=== PATIENT | male | born 1970 | race Hispanic/Latino ===

== ENCOUNTER 2017-05-26 09:58 | Emergency (ER) | payer MEDICARE, MEDICAID ==
[~2017-05-26] VITALS: Ht 170.2 cm; Wt 77.1 kg
[~2017-05-26 09:58] MED LIST: CEPHALEXIN500 MG ORAL; IBUPROFEN600 MG ORAL; NKM; QUETIAPINE FUMA25 MG ORAL; SEROQUEL200 MG ORAL
[2017-05-26] MEDS ORDERED: LORazepam Inj 2mg/ml 1ml IM ONE (10:15)
[2017-05-26 10:30] VITALS: BP 123/87
[2017-05-26 10:40] VITALS: BP 123/87
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
== END 2017-05-26 10:40 | disposition home or self-care (01) ==
LOC: EDBD 09:58 → EMR 10:22
DX: F41.9 Anxiety disorder, unspecified (principal); I10 Essential (primary) hypertension; Z86.59 Personal history of other mental and behavioral disorders
CPT/HCPCS: 96372; 99283

== ENCOUNTER 2017-12-02 18:47 | Emergency (ER) | payer MEDICARE, MEDICAID ==
[~2017-12-02] VITALS: Ht 170.2 cm; Wt 81.6 kg
[2017-12-02 19:05] VITALS: BP 142/77
[2017-12-02] MEDS ORDERED: LORazepam Inj 2mg/ml 1ml IM ONE (19:15)
[2017-12-02 19:43] VITALS: BP 142/77
--- NOTE | 2017-12-05 21:52 | Emergency Room Report ---
History of Present Illness General Chief Complaint: General Complaint Source: Patient Present Illness HPI 47-year-old male presents ED for evaluation. Patient states he is having an anxiety attack started today. History of anxiety. States his home medications were not helping. States he saw people taking pictures of him today. States he does have paranoia. Patient is in ED with service dog. Denies suicidal or homicidal ideation. Denies chest pain or shortness of breath. Denies hearing voices. No other aggravating or relieving factors. Denies any other associated symptoms Allergies: Coded Allergies: No Known Allergies (Unverified , 03/17/13) Patient History Past Medical History: psych hx Past Surgical History: none Pertinent Family History: none Social History: Denies: smoking, alcohol use, drug use Immunizations: UTD Reviewed Nursing Documentation: PMH: Agreed; PSxH: Agreed Nursing Documentation-PMH Hx Cardiac Problems: No Hx Hypertension: Yes Hx Cancer: No Hx Gastrointestinal Problems: No History Of Psychiatric Problem: Yes - Bipolar, Schizophrenia. Hx Neurological Problems: No Review of Systems All Other Systems: negative except mentioned in HPI Physical Exam Vital Signs Date Time Temp Pulse Resp B/P (MAP) Pulse Ox O2 Delivery O2 Flow Rate FiO2 12/02/17 19:05 99.0 107 14 142/77 98 Room Air 99.0 Sp02 EP Interpretation: reviewed, normal General Appearance: no apparent distress, alert, GCS 15, non-toxic Head: normocephalic, atraumatic Eyes: bilateral eye normal inspection, bilateral eye PERRL ENT: hearing grossly normal, normal pharynx, no angioedema, normal voice Neck: full range of motion, supple/symm/no masses Respiratory: chest non-tender, lungs clear, normal breath sounds, speaking full sentences Cardiovascular #1: regular rate, rhythm, no edema Cardiovascular #2: 2+ carotid (R), 2+ carotid (L), 2+ radial (R), 2+ radial (L) , 2+ dorsalis pedis (R), 2+ dorsalis pedis (L) Gastrointestinal: normal bowel sounds, non tender, soft, non-distended, no guarding, no rebound Rectal: deferred Genitourinary: normal inspection, no CVA tenderness Musculoskeletal: back normal, gait/station normal, normal range of motion, non- tender Neurologic: alert, oriented x3, responsive, motor strength/tone normal, sensory intact, speech normal Psychiatric: judgement/insight normal, memory normal, no suicidal/homicidal ideation, no delusions, anxious Reflexes: 3+ bicep (R), 3+ bicep (L), 3+ tricep (R), 3+ tricep (L), 3+ knee (R) , 3+ knee (L) Skin: normal color, no rash, warm/dry, well hydrated Lymphatic: no adenopathy Medical Decision Making Diagnostic Impression: Primary Impression: Anxiety ER Course Hospital Course 47-year-old male presents ED feeling very anxious after people taking pictures of him today. History of anxiety Differential diagnoses include: [place]/unstable angina, CVA/TIA, dehydration, anxiety Clinical course Patient placed on stretcher. on monitor and storage bin tender. After initial history, physical exam reveals male in no acute distress. Patient has good eye contact. Normal affect. Appears anxious. No signs of suicidal or homicidal ideation. Patient given Ativan IM in ED. On reassessment patient feeling better. Safe for discharge I. I feel this is a highly complex case requiring extensive working including EKG/Rhythm strip, Xray/CT/US, Blood/urine lab work, repeat exams while in ED, and administration of strong opiates/narcotics for pain control, admission to hospital or close patient follow up. Diagnosis - anxiety Stable and discharged to home. Followup with PMD. Return to ED if symptoms recur or worse Last Vital Signs Date Time Temp Pulse Resp B/P (MAP) Pulse Ox O2 Delivery O2 Flow Rate FiO2 12/02/17 19:43 99.0 107 14 142/77 98 Room Air 99.0 Status: improved Disposition: HOME, SELF-CARE Condition: Stable Referrals: NON PHYSICIAN (PCP) Patient Instructions: Panic Attacks, [id number] Jaime Gold MD December 05, 2017 21:52
== END 2017-12-02 19:43 | disposition home or self-care (01) ==
LOC: EMR 19:22
DX: F41.9 Anxiety disorder, unspecified (principal); I10 Essential (primary) hypertension; F20.9 Schizophrenia, unspecified; F31.9 Bipolar disorder, unspecified
CPT/HCPCS: 96372; 99284

== ENCOUNTER 2018-01-14 11:30 | Emergency (ER) | payer MEDICARE, MEDICAID ==
[~2018-01-14] VITALS: Ht 172.7 cm; Wt 79.4 kg
[2018-01-14 12:07] VITALS: BP 168/88
--- NOTE | 2018-01-14 13:26 | Emergency Room Report ---
History of Present Illness General Chief Complaint: Behavioral Complaint Source: Patient Present Illness HPI 47-year-old male patient presents ER complaining of anxiety after interaction with neighbors this morning. Denies other acute symptoms. Reports history of anxiety. denies thoughts of hurting himself or others. Previously seen in [facility] [place]. Requesting treatment to help with anxiety symptoms. Reports has mental health counselors he normally sees but none are available. Allergies: Coded Allergies: No Known Allergies (Unverified , 03/17/13) Patient History Past Medical History: see triage record Reviewed Nursing Documentation: PMH: Agreed; PSxH: Agreed Nursing Documentation-PMH Past Medical History: No History, Except For Hx Cardiac Problems: No Hx Hypertension: Yes Hx Cancer: No Hx Gastrointestinal Problems: No History Of Psychiatric Problem: Yes - anxiety attacks Hx Neurological Problems: No Review of Systems All Other Systems: negative except mentioned in HPI Physical Exam Vital Signs Date Time Temp Pulse Resp B/P (MAP) Pulse Ox O2 Delivery O2 Flow Rate FiO2 01/14/18 12:03 98.3 168/88 100 Room Air 98.2 Sp02 EP Interpretation: reviewed, normal General Appearance: well appearing, no apparent distress, alert, GCS 15, non- toxic Head: normocephalic, atraumatic Eyes: bilateral eye normal inspection, bilateral eye PERRL ENT: hearing grossly normal, normal pharynx, no angioedema, normal voice, uvula midline, moist mucus membranes Neck: full range of motion Respiratory: lungs clear, normal breath sounds, no rhonchi, no respiratory distress, no accessory muscle use, no wheezing, speaking full sentences Cardiovascular #1: regular rate, rhythm, no edema Gastrointestinal: non tender, soft, no mass, non-distended, no guarding, no rebound Genitourinary: no CVA tenderness Musculoskeletal: back normal, digits/nails normal, gait/station normal, normal range of motion, non-tender Neurologic: alert, oriented x3, responsive, motor strength/tone normal, sensory intact Psychiatric: mood/affect normal Skin: no rash Lymphatic: no adenopathy Medical Decision Making PA Attestation Dr. Horan is my supervising Physician whom patient management has been discussed with. Diagnostic Impression: Primary Impression: Anxiety ER Course Pt. presents to the ED c/o anxiety symptoms. Multiple differentials considered. Vital signs: are WNL, pt. is afebrile ED COURSE: Physical exam benign. Reviewed previous charts for patient when presenting with similar symptoms. Will provide patient with 2mg IM Ativan at this time as previously done. Instructed patient further treatment needs to come from his mental health counselors, will not provide Rx at discharge. Patient reports understanding. Patient reports feeling better following administration of medication. Patient OK fro discharge. Do not believe patient is a danger to himself or others at this time. DISCHARGE: At this time pt is stable for d/c to home. Patient is resting comfortably, in no acute distress, nontoxic appearing, talking without difficulty. Patient to take medications as instructed Will provide with patient care instructions and any necessary prescriptions. Care plan and follow-up instructions provided. Patient instructed to follow-up with primary care provider in 3 - 5 days. Patient questions asked and answered. Patient reports understanding and agreement to treatment plan. ER precautions given. Patient instructed to return to ER immediately for any new or worsening of symptoms including but not limited to increasing SOB, persistent fever, chest pain, intractable vomiting. - Please note that this Emergency Department Report was dictated using RipCodegrades 6 through 8 teacher technology software, occasionally this can lead to erroneous entry secondary to interpretation by the dictation equipment. Last Vital Signs Date Time Temp Pulse Resp B/P (MAP) Pulse Ox O2 Delivery O2 Flow Rate FiO2 01/14/18 12:03 98.3 168/88 100 Room Air 98.2 Disposition: HOME, SELF-CARE Condition: Stable Referrals: NOT CHOSEN IPA/MD,REFERRING (PCP) Patient Instructions: Generalized Anxiety Disorder Additional Instructions: Followup with primary care provider in 3 -5 days. Follow-up with mental health professional. Take medications as directed. Patient questions asked and answered. ER precautions given, patient instructed to return to ER immediately for any new or worsening of symptoms. Jesús Nash Jan 14, 2018 13:26
[2018-01-14] MEDS ORDERED: LORazepam Inj 2mg/ml 1ml IM ONE (13:30)
[2018-01-14 13:48] VITALS: BP 162/80
== END 2018-01-14 13:48 | disposition home or self-care (01) ==
LOC: EMR 12:55
DX: F41.9 Anxiety disorder, unspecified (principal); I10 Essential (primary) hypertension
CPT/HCPCS: 96372; 99283

== ENCOUNTER 2018-07-11 10:41 | Emergency (ER) | payer MEDICARE, MEDICAID ==
[~2018-07-11] VITALS: Ht 170.2 cm; Wt 74.8 kg
[2018-07-11 11:14] VITALS: BP 139/83
[2018-07-11] MEDS ORDERED: Mylanta II UD 30ml ORAL ONE (11:15)
[2018-07-11 11:41] LABS: EOSINOPHILS % (AUTO) 0.4 % (0.0-3.0); HEMATOCRIT 43.3 % (42.0-52.0); HEMOGLOBIN 15.2 G/DL (14.2-18.0); LYMPHOCYTES % (AUTO) 22.1 % (20.0-45.0); MEAN CORPUSCULAR VOLUME 91 FL (80-99); MONOCYTES % (AUTO) 7.1 % (1.0-10.0); NEUTROPHILS % (AUTO) 69.4 % (45.0-75.0); PLATELET COUNT 243 K/UL (150-450); RED BLOOD COUNT 4.74 M/UL (4.70-6.10); RED CELL DISTRIBUTION WIDTH 10.7 % (11.6-14.8); WHITE BLOOD COUNT 8.7 K/UL (4.8-10.8)
[2018-07-11 11:48] LABS: ANION GAP 10 mmol/L (5-15); BLOOD UREA NITROGEN 15 mg/dL (7-18); CALCIUM 9.6 MG/DL (8.5-10.1); CARBON DIOXIDE 27 MMOL/L (21-32); CHLORIDE 105 MMOL/L (98-107); CREATININE 1.1 MG/DL (0.55-1.30); SODIUM 142 MMOL/L (136-145)
[2018-07-11 11:49] LABS: APPEARANCE,URINE CLEAR; BILIRUBIN, URINE NEGATIVE (NEGATIVE); COLOR,URINE YELLOW; GLUCOSE, URINE (UA) NEGATIVE (NEGATIVE); KETONES,URINE 3+ (NEGATIVE); LEUKOCYTE ESTERASE ,URINE 1+ (NEGATIVE); NITRITE,URINE NEGATIVE (NEGATIVE); PH,URINE 6.5 (4.5-8.0); PROTEIN,URINE 2+ (NEGATIVE); UROBILINOGEN,URINE 4 MG/DL (0.0-1.0)
[2018-07-11 11:52] LABS: ALANINE AMINOTRANSFERASE 27 U/L (12-78); ALBUMIN 4.1 G/DL (3.4-5.0); ALKALINE PHOSPHATASE 131 U/L (46-116); ASPARTATE AMINO TRANSFERASE 21 U/L (15-37); BILIRUBIN,TOTAL 0.6 MG/DL (0.2-1.0)
--- NOTE | 2018-07-11 12:39 | Emergency Room Report ---
History of Present Illness General Chief Complaint: Nausea, Vomiting, and Diarrhea Source: Patient Present Illness HPI 47-year-old male with no medical problems other than anxiety presents with epigastric pain after eating an orange week ago with intermittent bouts of nausea vomiting diarrhea since then, he has tried Pepto-Bismol, [place], without relief. He has no other complaints such as fevers, rectal bleeding, melanotic stools, chest pain, shortness breath. He also denies recent antibiotic use. Allergies: Coded Allergies: No Known Allergies (Unverified , 03/17/13) Patient History Reviewed Nursing Documentation: PMH: Agreed; PSxH: Agreed Nursing Documentation-PMH Past Medical History: No History, Except For Hx Cardiac Problems: No Hx Hypertension: Yes Hx Cancer: No Hx Gastrointestinal Problems: No Hx Neurological Problems: No Review of Systems All Other Systems: negative except mentioned in HPI Physical Exam Vital Signs Date Time Temp Pulse Resp B/P (MAP) Pulse Ox O2 Delivery O2 Flow Rate FiO2 07/11/18 10:53 97.9 89 17 139/83 98 Room Air Sp02 EP Interpretation: reviewed, normal General Appearance: no apparent distress, alert, non-toxic Head: normocephalic Eyes: bilateral eye normal inspection, bilateral eye PERRL, bilateral eye EOMI ENT: normal ENT inspection, hearing grossly normal, normal pharynx, no angioedema, normal voice, moist mucus membranes Neck: normal inspection, full range of motion, supple, supple/symm/no masses Respiratory: chest non-tender, lungs clear, normal breath sounds, chest symmetrical, palpation of chest normal Cardiovascular #1: normal peripheral pulses, regular rate, rhythm Cardiovascular #2: 2+ radial (R), 2+ radial (L) Gastrointestinal: normal inspection, non tender, soft, no mass, no guarding, no rebound Rectal: deferred Genitourinary: normal inspection, no CVA tenderness Musculoskeletal: back normal, gait/station normal, normal range of motion, non- tender, no calf tenderness Neurologic: alert, responsive, ballet teacher III-XII nml as tested, motor strength/tone normal, sensory intact, speech normal Psychiatric: judgement/insight normal, memory normal, mood/affect normal, no suicidal/homicidal ideation Skin: normal color, no rash, warm/dry, normal turgor Lymphatic: no adenopathy Medical Decision Making Diagnostic Impression: Primary Impression: Abdominal pain ER Course Workup has been unremarkable, patient still with pain, CT showed possible calcification versus gallstones, patient's LFTs unremarkable as well as minimally elevated, normal white count, soft abdomen, mostly patient is anxious , will recommend follow-up as an outpatient. EKG Diagnostic Results EKG Time: 11:30 EP Interpretation: no stemi Rate: normal Rhythm: NSR ST Segments: no acute changes CT/MRI/US Diagnostic Results CT/MRI/US Diagnostic Results : Imaging Test Ordered: ct a/p Impression no acute dz, possible gallstones vs. calcifications Last Vital Signs Date Time Temp Pulse Resp B/P (MAP) Pulse Ox O2 Delivery O2 Flow Rate FiO2 07/11/18 11:14 97.9 17 139/83 98 Room Air 07/11/18 10:53 89 Disposition: HOME, SELF-CARE Referrals: NON PHYSICIAN (PCP) MIGUEL ÁNGEL DUMONT M.D Jul 11, 2018 12:39
--- NOTE | 2018-07-11 13:31 | Diagnostic Imaging Report ---
Indication: Epigastric pain, intermittent nausea, vomiting, diarrhea Technique: Spiral acquisitions obtained through the abdomen and pelvis. No oral contrast utilized, per emergency room physician request No IV contrast utilized, per referring physician request.. Multiplanar reconstructions were generated. Total dose length product 537.71 mGycm. CTDIvol(s) 10.62 mGy. Dose reduction achieved using automated exposure control Comparison: None Findings: Lack of enteric contrast limits assessment of the GI tract. The appendix is normal. Densities within the colonic lumen likely reflects stated clinical history of recent antacid ingestion no evidence of diverticulosis or diverticulitis. No small bowel distention. Distal esophagus, stomach, duodenum are unremarkable. No free or loculated intraperitoneal gas or fluid is evident. Lack of IV contrast limits assessment of the solid organs. The gallbladder contains gallstones. Nondependent small calcifications may reflect wall adherent calculi or calcifications from a cholecystosis. The liver, bile ducts, pancreas, spleen, adrenals, kidneys are all unremarkable. No retroperitoneal or mesenteric mass or adenopathy. The prostate is somewhat prominent. The bladder is equivocally mildly thick-walled, probably an artifact of under distention. No pelvic mass or adenopathy. No retroperitoneal or mesenteric mass or adenopathy. The included lung bases are clear. The bones are unremarkable. Impression: Limited exam, due to lack of enteric and IV contrast administration No definite acute abnormality Cholelithiasis. Nondependent gallbladder calcifications may represent wall adherent calculi or calcifications from a cholecystosis Equivocal mild bladder wall thickening, probably an artifact of under distention but cystitis not completely excludable. Correlate with clinical findings The CT scanner at [facility] is accredited by the [place] [employer] [employer] and the scans are performed using protocols designed to limit radiation exposure to as low as reasonably achievable to attain images of sufficient resolution adequate for diagnostic evaluation.
[2018-07-11] MEDS ORDERED: LORazepam 1mg tab ONE (13:36)
[2018-07-11] MEDS ORDERED: LORazepam 1mg tab ORAL ONE (13:45)
[2018-07-11] MEDS ORDERED: DICYCLOMINE HCL10 MG PO (13:51)
[2018-07-11] MEDS ORDERED: Haloperidol 5mg/ml Inj IM ONE (14:00)
[2018-07-11] MEDS ORDERED: COMPAZINE25 M1 RC (14:19)
[2018-07-11] MEDS ORDERED: ZOFRAN4 M3 ORAL (14:19)
[2018-07-11 14:38] VITALS: BP 139/83
== END 2018-07-11 14:39 | disposition home or self-care (01) ==
LOC: EMR 12:10
DX: R10.13 Epigastric pain (principal); I10 Essential (primary) hypertension
CPT/HCPCS: 36415; 74176; 80053; 81003; 83690; 84484; 85025; 86710; 93005; 96372; 99284; J1630

== ENCOUNTER 2019-06-01 10:54 | Emergency (ER) | payer MEDICARE, MEDICAID ==
[~2019-06-01] VITALS: Ht 170.2 cm; Wt 68.0 kg
[~2019-06-01 10:54] MED LIST changes: +COMPAZINE25 M1 RC; +DICYCLOMINE HCL10 MG PO; +ZOFRAN4 M3 ORAL
[2019-06-01 11:15] VITALS: BP 134/82
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
--- NOTE | 2019-06-01 11:40 | NUR ---
ED Nurse Note: DEVELOPER AUTOMATIC AT THE BED SIDE FOR XRAY OF HAND.
--- NOTE | 2019-06-01 11:48 | Diagnostic Imaging Report ---
EXAM: CT Head Without Intravenous Contrast CLINICAL HISTORY: PAIN TECHNIQUE: Axial computed tomography images of the head brain without intravenous contrast. CTDI is 60 mGy and DLP is 1364.20 mGy-cm. One or more of the following dose reduction techniques were used: automated exposure control, adjustment of the mA and or kV according to patient size, use of iterative reconstruction technique. Coronal reformatted images were created and reviewed. COMPARISON: No relevant prior studies available. FINDINGS: Brain: Subcentimeter hyperdense focus along the inferior aspect of the right cerebellum on only the coronal images (series 8 image 30) without a correlate on the axial images. Brain parenchyma otherwise appears unremarkable. No white matter edema. No acute renal hemorrhage. No mass effect or midline shift. Ventricles: Unremarkable. No ventriculomegaly. Bones joints: Unremarkable. No depressed skull fracture. Soft tissues: Unremarkable. Sinuses: Incidental note of a 5 mm mucous retention cyst versus polyp in the medial wall of the left maxillary sinus (series 9 image 29). Remaining visualized paranasal sinuses appear clear. No sinus air-fluid levels. Mastoid air cells: Unremarkable as visualized. No mastoid effusion. IMPRESSION: 1. Subcentimeter hyperdense focus along the inferior aspect of the right cerebellum on only the coronal images (series 8 image 30) without a correlate on the axial images. This appears dural-based and may represent image artifact versus small meningioma. If there is continued concern, follow-up evaluation with MRI may be considered. 2. No acute intracranial hemorrhage. No mass effect or midline shift.
--- NOTE | 2019-06-01 11:54 | Diagnostic Imaging Report ---
EXAM: XR Right Hand Complete, 3 or More Views CLINICAL HISTORY: PAIN TECHNIQUE: Frontal, lateral and oblique views of the right hand. COMPARISON: No relevant prior studies available. FINDINGS: Bones joints: Minimally displaced oblique fracture lucency across the fifth metacarpal proximal metaphysis. Chronic osseous remodeling of the fifth metacarpal distal metaphysis, likely sequelae of remote fracture. Mild degenerative changes throughout the interphalangeal joints and the radiocarpal joint. Soft tissues: Unremarkable. No radiopaque foreign body. IMPRESSION: 1. Minimally displaced oblique fracture lucency across the fifth metacarpal proximal metaphysis. 2. Chronic osseous remodeling of the fifth metacarpal distal metaphysis, likely sequelae of remote fracture.
[2019-06-01] MEDS ORDERED: IBUPROFEN600 MG ORAL (12:05)
--- NOTE | 2019-06-01 12:23 | NUR ---
Note snehaselene in EDM - 06/01/19 at 1253 by LEIF ER DISCHARGE NOTE: Patient is cleared to be discharged per ERMD, pt is aox4, on room air, with stable vital signs. pt was given dc and prescription instructions, pt was able to verbalize understanding, pt id band removed. pt is able to ambulate with steady gait. pt took all belongings.
--- NOTE | 2019-06-01 13:25 | Diagnostic Imaging Report ---
EXAM: XR Left Hand Complete, 3 or More Views CLINICAL HISTORY: TRAUMA TECHNIQUE: Frontal, lateral and oblique views of the left hand. COMPARISON: No relevant prior studies available. FINDINGS: Bones joints: Unremarkable. No visible displaced fracture. No dislocation. No osseous erosions. Visualized joint spaces appear unremarkable. Soft tissues: Unremarkable. No radiopaque foreign body. IMPRESSION: Unremarkable left hand x-rays.
[2019-06-01 13:52] VITALS: BP 134/82
== END 2019-06-01 13:56 | disposition home or self-care (01) ==
LOC: EMR 11:44
DX: S00.83XA Contusion of other part of head, initial encounter (principal); S62.306A Unspecified fracture of fifth metacarpal bone, right hand, initial encounter for closed fracture; I10 Essential (primary) hypertension; F43.10 Post-traumatic stress disorder, unspecified; F31.9 Bipolar disorder, unspecified; F20.9 Schizophrenia, unspecified; M79.642 Pain in left hand; Y04.2XXA Assault by strike against or bumped into by another person, initial encounter; Y92.9 Unspecified place or not applicable
CPT/HCPCS: 70450; 99282